=== PATIENT | male | born 1970 | race Caucasian/White ===

== ENCOUNTER 2023-12-11 21:25 | Emergency (ER) | payer BC ==
[2023-12-11] MEDS ORDERED: Ketorolac Tromethamine 30 MG (1 mL) VIAL ONE (22:52)
[2023-12-11 23:22] LABS: Troponin I Less than 0.010 ng/mL (< 0.028)
== END 2023-12-12 01:30 | disposition home or self-care (01) ==
LOC: ERS 21:25
DX: S22.20XA Unspecified fracture of sternum, initial encounter for closed fracture (principal); V43.52XA Car driver injured in collision with other type car in traffic accident, initial encounter; W22.11XA Striking against or struck by driver side automobile airbag, initial encounter; Y93.89 Activity, other specified
CPT/HCPCS: 36415; 71045; 71250; 84484; 93005; 96372; J1885